=== PATIENT | male | born 1940 | race Caucasian/White ===

== ENCOUNTER 2016-06-22 10:10 | Emergency (ER) | payer OTHER ==
[~2016-06-22] VITALS: Ht 170.2 cm; Wt 88.5 kg
--- NOTE | ~2016-06-22 | EKG ---
[place] [address] [place] [address] ELECTROCARDIOGRAM REPORT Name: COLLIN GRACE JR Room #: [facility]#: [id number] Admission: Attend Phys: Discharge: Date of : 44 Report #: [id number] THIS REPORT FOR: //name// [facility] ED Test Date: 2016-06-22 Test Time: 10:16:24 Pat Name: COLLIN GRACE Department: Room: Gender: Manager Of Selection And Assessment: Too DILLARD RN : 1940 Requested By: Sosa Rosario Order Number: [id number] MD: David Patel Measurements Intervals [place] Rate: 66 P: 23 MA: 233 QRS: 8 QRSD: 105 T: 27 QT: 410 QTc: 430 Interpretive Statements Sinus rhythm Prolonged MA interval Abnormal R-wave progression, early transition ST elevation, consider anterior injury No previous ECG available for comparison Electronically Signed On 06-22-2016 10:47:49 PHARMACIST by David Patel [email or web address] <ELECTRONICALLY SIGNED> By: David Patel MD 06/22/16 1047 1016 1016 David Patel MD /EPI
--- NOTE | ~2016-06-22 | EKG ---
[address] [address] ELECTROCARDIOGRAM REPORT Name: COLLIN GRACE JR [id number] Admission: 06/22/16 Attend Phys: Discharge: 06/22/16 Date of : 44 Report #: [id number] THIS REPORT FOR: //name// [facility] ED Test Date: 2016-06-22 Test Time: 12:26:12 Pat Name: COLLIN GRACE Department: Room: Gender: M Lion Tamer: MZOOK : 1940 Requested By: Sosa Rosario Order Number: [id number] MD: Chris Gutierrez Measurements Intervals [place] Rate: 53 P: 0 [place]: 246 QRS: -1 QRSD: 103 T: 26 QT: 417 QTc: 392 Interpretive Statements Sinus rhythm Electronically Signed On 06-22-2016 14:21:49 RUNSTITCHING MACHINE OPERATOR by Chris Gutierrez [email or web address] <ELECTRONICALLY SIGNED> By: Chris Gutierrez MD 06/22/16 1421 1226 1226 Chris Gutierrez MD /EPI
[~2016-06-22 10:10] MED LIST: ACTOS 45 MG45 M1 PO; ASPIRIN EC81 M1 PO; B-COMPLEX-VITA1 EACH PO; FISH OIL 1,001000 M1 PO; GLUCOPHAGE500 MG PO; MULTIVITAMINS PO
[2016-06-22 10:45] LABS: ABSOLUTE NEUTROPHILS 3.1 thou/uL (1.4-8.2); BASOPHILS 0.7 % (0.0-2.0); EOSINOPHILS 2.8 % (0.0-3.0); HEMATOCRIT 40.6 % (42.0-52.0); HEMOGLOBIN 13.6 gm/dL (14.0-18.0); LYMPHOCYTES 23.6 % (24.0-44.0); MCH 30.8 pg (26.0-34.0); MCHC 33.6 % (28.0-37.0); MCV 91.7 fL (80.0-100.0); MONOCYTES 6.4 % (1.0-8.0); PLATELET COUNT 186 thou/uL (150-400); POLYS 66.5 % (36.0-66.0); RBC 4.42 mil/uL (4.50-6.00); WBC 4.6 thou/uL (4.0-11.0)
[2016-06-22 10:48] LABS: MANUAL DIFF NO
[2016-06-22 10:54] LABS: ANION GAP 7 mmol/L (7-16); BUN 20 mg/dL (7-18); CHLORIDE 104 mmol/L (98-107); CO2 29 mmol/L (21-32); GLUCOSE 184 mg/dL (70-99); POTASSIUM 4.4 mmol/L (3.5-5.1); SODIUM 140 mmol/L (136-145)
[2016-06-22 11:03] LABS: TROPONIN-I < 0.04 ng/mL (<0.04-0.07)
== END 2016-06-22 13:18 | disposition home or self-care (01) ==
LOC: ER 10:10
PROVIDERS: Emergency Medicine
DX: R07.89 Other chest pain (principal); E11.9 Type 2 diabetes mellitus without complications

== ENCOUNTER 2016-06-22 18:17 | Inpatient (IN) | payer OTHER ==
[~2016-06-22] VITALS: Ht 170.2 cm; Wt 89.8 kg
--- NOTE | ~2016-06-22 | EKG ---
[address] [place] [address] ELECTROCARDIOGRAM REPORT Name: COLLIN GRACE JR Room #: 202-P ADM IN M.R.#: [id number] Admission: 06/22/16 Attend Phys: David Patel MD Discharge: Date of : 44 Report #: [id number] THIS REPORT FOR: //name// [facility] ED Test Date: 2016-06-22 Test Time: 18:22:57 Pat Name: COLLIN GRACE Department: Room: 202 Gender: M Field Marketing Specialist: Too DILLARD RN : 1940 Requested By: Promise Daniels Order Number: [id number] MD: David Patel Measurements Intervals [place] Rate: 60 P: 7 CT: 237 QRS: -7 QRSD: 106 T: 35 QT: 420 QTc: 420 Interpretive Statements Sinus rhythm Prolonged CT interval ST elevation, consider anterior injury Compared to ECG 06/22/2016 12:26:12 Myocardial infarct finding now present Electronically Signed On 06-23-2016 16:41:46 NANOTECHNOLOGY TECHNICIAN by David Patel [email or web address] <ELECTRONICALLY SIGNED> By: David Patel MD 06/23/16 1641 21 21 David Patel MD /UZIEL
--- NOTE | ~2016-06-22 | EKG ---
[address] [address] ELECTROCARDIOGRAM REPORT Name: GRACECOLLIN FIGUEROA JR Room #: 202-P ADM IN M.R.#: [id number] Admission: 06/22/16 Attend Phys: David Patel MD Discharge: Date of : 44 Report #: [id number] THIS REPORT FOR: //name// [facility] Test Date: 2016-06-23 Test Time: 06:50:04 Pat Name: COLLIN GRACE Department: Room: 202 P Gender: M Four Horse Hitch Driver: john : 1940 Requested By: David Patel Order Number: [id number] MD: David Patel Measurements Intervals [place] Rate: 58 P: -55 [place]: 249 QRS: -7 QRSD: 104 T: 63 QT: 404 QTc: 397 Interpretive Statements Sinus rhythm Prolonged [place] interval Abnrm T, probable ischemia, anterolateral lds Electronically Signed On 06-23-2016 16:43:25 CHIEF DIETITIAN by David Patel [email or web address] <ELECTRONICALLY SIGNED> By: David Patel MD 06/23/16 1643 0650 0650 David Patel MD /UZIEL
--- NOTE | ~2016-06-22 | CATHLAB ---
[facility] [address] [email or web address] [address] INVASIVE PROCEDURE REPORT Name: COLLIN GRACE JR Room #: 202-P [facility] IN .R.#: [id number] Admission: 06/22/16 Attend Phys: David Patel MD Discharge: Date of : 44 Date of Service: 06/22/161954 Report #: [id number] THIS REPORT FOR: //name// CC: Chuck Patel DATE OF SERVICE: 06/22/2016 INDICATIONS: Acute anterior wall NE. Full risks, benefits, and alternatives of cardiac catheterization were explained to the patient. All questions were answered. Informed consent was obtained. The right groin area was prepped and draped in a sterile manner. Lidocaine was given subcutaneously. A 6-Slovak sheath was inserted into the right femoral artery via modified Seldinger technique. CORONARY ANATOMY: 1. The left main artery is a large caliber vessel, with no flow-limiting lesions. 2. The proximal LAD gives off a first diagonal artery. The first diagonal artery has mild disease in the proximal segment, 30%. 3. Within the mid LAD, there is a severe, 99% stenosis with MAYELIN 2 blood flow down the apical LAD. 4. The left circumflex artery gives off 2 obtuse marginal arteries. The first OM is a small caliber vessel. 5. The second obtuse marginal artery is a moderate-sized caliber vessel with mild disease in the proximal segment, 30%. 6. The RCA is a dominant vessel, with ectatic areas in the proximal segment. 7. There is a mild stenosis in the proximal RCA, 30%. There is another mild stenosis within the mid/distal segment of the RCA, 30%. The PDA is a moderate size caliber vessel, with no flow-limiting lesions. 8. A left ventriculogram was performed at the end of the procedure, revealing a dilated left ventricle with an ejection fraction of 35%-40%. There is hypokinesis of the mid to apical LAD and distal inferior segment. The LVEDP is approximately 28 mmHg. There is no gradient across the outflow tract. ANGIOPLASTY REPORT: A 6-Slovak guide was used. The patient was given Angiomax. I was able to place a Luge wire down the LAD past the obstruction. The mid segment stenosis was predilated with a 2.5 mm E4 balloon. There was a long area of stenosis and that I elected to use a 2.75 x 22 mm Resolute (the drug-eluting stent), inflated up to 14 atmospheres. This stent was postdilated with a 3.0 mm noncompliant balloon, NC Euphora inflated up to 18 atmospheres. Final injections revealed MAYELIN 3 blood flow down the LAD with a 0% residual stenosis at the lesion site. The sheath will be sutured and pulled manually. A closure device was not used [address] [address] INVASIVE PROCEDURE REPORT Name: COLLIN GRACE JR Room #: 202-P [facility] IN ..#: [id number] Admission: 06/22/16 Attend Phys: David Patel MD Discharge: Date of : 44 Date of Service: 06/22/161954 Report #: [id number] secondary to tortuosity in the right iliac artery. IMPRESSION: 1. Successful insertion of a drug-eluting stent into the subtotal occlusion within the mid LAD. 2. Mild disease in the first diagonal artery, RCA, and second obtuse marginal artery. 3. Ectatic areas in the RCA. 4. Moderate segmental LV dysfunction. 5. Recommend dual antiplatelet therapy. <ELECTRONICALLY SIGNED> By: David Patel MD 06/23/16 1219 1955 0843 David Patel MD /nt
--- NOTE | ~2016-06-22 | H ---
[facility] [place] [address] HISTORY AND PHYSICAL Name: COLLIN GRACE JR Room #: 202-P ADM IN M.R.#: [id number] Admission: 06/22/16 Attend Phys: David Patel MD Discharge: Date of : 44 Report #: [id number] THIS REPORT FOR: //name// CC: Chuck Patel INDICATION: Chest pain. HISTORY OF PRESENT ILLNESS: This is a 75-year-old gentleman with a past medical history of diabetes mellitus, presenting with recurrent chest pains. For the past few days, he has been experiencing a discomfort in his left lower chest area, radiating up into the shoulder and down the left arm. It occurs at rest, not related to physical exertion. There were no alleviating or aggravating factors. He presented to the ER for an initial evaluation earlier today. The initial evaluation was unremarkable and he was sent home. Shortly thereafter, he had recurrent episodes of chest pains and presents back to the ER for an evaluation. The EKG now shows ST elevation in leads V2 and V3, will need to rule out an acute coronary syndrome. He offers no complaints of fever, chills or congestion. PAST MEDICAL HISTORY: Diabetes mellitus. Negative for hypertension, negative for hypercholesterolemia. ALLERGIES: None. MEDICATIONS: Metformin twice a day. SOCIAL HISTORY: Denies tobacco use. FAMILY HISTORY: Negative for premature CAD. REVIEW OF SYSTEMS: A full 10-point review of systems performed. Only the pertinent positives and negatives are described in the HPI. PHYSICAL EXAMINATION: VITAL SIGNS: Blood pressure initially was 160/80, heart rate is 60 beats per minute. GENERAL APPEARANCE: A well-developed, well-nourished male in no acute respiratory distress. HEAD AND EYES: Normocephalic. Sclerae anicteric. ENT: Oral mucosa moist. NECK: Supple. LUNGS: Clear to auscultation. CARDIAC: Regular rate and rhythm, S1, S2 positive. ABDOMEN: Soft. EXTREMITIES: No major joint deformities. NEUROLOGIC: Alert and oriented x 3. [facility] [address] [place] [address] HISTORY AND PHYSICAL Name: COLLIN GRACE Room #: 202-[facility] IN .R.#: [id number] Admission: 06/22/16 Attend Phys: David Patel MD Discharge: Date of : 44 Report #: [id number] LABORATORY VALUES: ECG reveals sinus rhythm, ST elevation in V2, V3, rule out infarcts. ASSESSMENT: 1. Acute coronary syndrome/rule out anterior infarct. Full risks, benefits and alternatives of cardiac catheterization was explained to the patient. We will proceed with a coronary angiogram. 2. Diabetes mellitus. 3. Hypercholesterolemia, will need a fasting lipid profile. <ELECTRONICALLY SIGNED> By: David Patel MD 06/23/16 1220 1908 43 David Patel MD /nt
[2016-06-22 18:18] VITALS: BP 149/75
[2016-06-22 18:45] LABS: ABSOLUTE NEUTROPHILS 3.1 thou/uL (1.4-8.2); BASOPHILS 0.9 % (0.0-2.0); EOSINOPHILS 2.7 % (0.0-3.0); HEMOGLOBIN 13.5 gm/dL (14.0-18.0); LYMPHOCYTES 27.5 % (24.0-44.0); MCH 31.2 pg (26.0-34.0); MCHC 33.7 % (28.0-37.0); MCV 92.6 fL (80.0-100.0); MONOCYTES 7.5 % (1.0-8.0); PLATELET COUNT 175 thou/uL (150-400); POLYS 61.4 % (36.0-66.0); RBC 4.32 mil/uL (4.50-6.00); RDW 14.3 % (10.5-14.5); WBC 5.1 thou/uL (4.0-11.0)
[2016-06-22 18:46] LABS: MANUAL DIFF NO
[2016-06-22 18:58] LABS: APTT 26.8 Seconds (24.5-32.8); PROTIME 10.5 Seconds (9.3-11.4)
[2016-06-22 18:59] VITALS: BP 125/66
[2016-06-22 19:19] LABS: CALCIUM 9.5 mg/dL (8.5-10.1); CREATININE 0.9 mg/dL (0.6-1.3); POTASSIUM 4.7 mmol/L (3.5-5.1)
[2016-06-22 19:32] LABS: ALBUMIN 3.8 g/dL (3.4-5.0); TOTAL BILIRUBIN 0.3 mg/dL (<0.1-1.0); TOTAL PROTEIN 7.1 g/dL (6.4-8.2); TROPONIN-I 0.12 ng/mL (<0.04-0.07)
[2016-06-22 20:25] VITALS: BP 135/74
[2016-06-22 20:30] VITALS: BP 135/74
[2016-06-22 22:40] VITALS: BP 116/77
[2016-06-22 23:00] VITALS: BP 125/76
[2016-06-23] VITALS (9 sets, daily range): BP systolic 110–140; BP diastolic 66–81
[2016-06-23 04:32] LABS: HEMATOCRIT 35.2 % (42.0-52.0); HEMOGLOBIN 11.8 gm/dL (14.0-18.0); MCH 31.1 pg (26.0-34.0); MCHC 33.4 % (28.0-37.0); RBC 3.79 mil/uL (4.50-6.00); RDW 13.8 % (10.5-14.5); WBC 5.5 thou/uL (4.0-11.0)
[2016-06-23 04:57] LABS: ANION GAP 8 mmol/L (7-16); BUN 14 mg/dL (7-18); CALCIUM 8.9 mg/dL (8.5-10.1); CHLORIDE 105 mmol/L (98-107); CHOLESTEROL 119 mg/dL (<200); CO2 27 mmol/L (21-32); CREATININE 0.8 mg/dL (0.6-1.3); GLUCOSE 182 mg/dL (70-99); HDL CHOLESTEROL 36 mg/dL (>40); LDL CHOLESTEROL 64 mg/dL (<100); SODIUM 140 mmol/L (136-145); TC:HDL 3.3 Ratio (Not establshd); TRIGLYCERIDE 95 mg/dL (<150); VLDL 19 mg/dL (<40)
[2016-06-23 04:59] LABS: SERUM ASSESSMENT Clear
[2016-06-24 04:36] LABS: CALCIUM 9.6 mg/dL (8.5-10.1); CREATININE 0.9 mg/dL (0.6-1.3); POTASSIUM 4.6 mmol/L (3.5-5.1)
[2016-06-24 05:10] VITALS: BP 129/83
[2016-06-24 07:10] VITALS: BP 115/74
[2016-06-24 11:10] VITALS: BP 101/60
[2016-06-24 19:26] VITALS: BP 104/65
[2016-06-25 04:45] VITALS: BP 124/74
[2016-06-25 07:54] VITALS: BP 94/58
[2016-06-25] MEDS ORDERED: CARVEDILOL3.125 MG PO (08:01)
[2016-06-25] MEDS ORDERED: EFFIENT10 MG PO (08:01)
[2016-06-25] MEDS ORDERED: COZAAR 50 MG TA50 M1 PO (08:01)
[2016-06-25] MEDS ORDERED: ASPIRIN325 PO (08:01)
[2016-06-25] MEDS ORDERED: ATORVASTATIN CA40 MG PO (08:01)
[2016-06-25 11:12] VITALS: BP 94/58
[2016-06-25 12:18] VITALS: BP 94/58
[2016-06-25 12:20] VITALS: BP 94/58
== END 2016-06-25 13:28 | disposition home or self-care (01) | DRG 247 ==
LOC: ER 18:17 → TBA 19:01 → ER 19:01 → 2N 19:11 → TBA 19:11 → 2N 21:42
PROVIDERS: Emergency Medicine; Internal Medicine Cardiovascular Disease
PROC: 027034Z Dilation of Coronary Artery, One Artery with Drug-eluting Intraluminal Device, Percutaneous Approach (ICD-10-PCS; principal; 2016-06-22)
PROC: 4A023N7 Measurement of Cardiac Sampling and Pressure, Left Heart, Percutaneous Approach (ICD-10-PCS; 2016-06-22)
PROC: B2111ZZ Fluoroscopy of Multiple Coronary Arteries using Low Osmolar Contrast (ICD-10-PCS; 2016-06-22)
PROC: B2151ZZ Fluoroscopy of Left Heart using Low Osmolar Contrast (ICD-10-PCS; 2016-06-22)
DX: I21.09 ST elevation (STEMI) myocardial infarction involving other coronary artery of anterior wall (principal); I42.9 Cardiomyopathy, unspecified; I24.9 Acute ischemic heart disease, unspecified; E11.9 Type 2 diabetes mellitus without complications; E78.00 Pure hypercholesterolemia, unspecified; I25.10 Atherosclerotic heart disease of native coronary artery without angina pectoris; Z98.890 Other specified postprocedural states; Z79.82 Long term (current) use of aspirin
CPT/HCPCS: 10081

== ENCOUNTER → 2016-12-06 | Outpatient (CLI) | payer OTHER ==
[~2016-12-06] MED LIST changes: +ASPIRIN325 PO; +ATORVASTATIN CA40 MG PO; +CARVEDILOL3.125 MG PO; +COZAAR 50 MG TA50 M1 PO; +EFFIENT10 MG PO
== END ==
LOC: NUC 08:28
DX: I25.10 Atherosclerotic heart disease of native coronary artery without angina pectoris (principal); I10 Essential (primary) hypertension; E11.9 Type 2 diabetes mellitus without complications; E78.5 Hyperlipidemia, unspecified

== ENCOUNTER → 2017-11-18 | Outpatient (CLI) | payer OTHER ==
--- NOTE | ~2017-11-18 | 2DMMODE ---
[facility] [place] [address] 2 D/M-MODE ECHOCARDIOGRAM Name: COLLIN GRACE JR Room #: REG [facility]#: [id number] Admission: 11/18/17 Attend Phys: David Patel MD Discharge: Date of : 44 Date of Service: 11/18/17 1026 Report #: [id number] THIS REPORT FOR: //name// APPROVED REPORT Study performed: 11/18/2017 09:11:27 EXAM: Comprehensive 2D, Doppler, and color-flow Echocardiogram Patient Location: Out-Patient Status: routine BSA: 1.98 HR: 51 bpm BP: 132/72 mmHg Rhythm: NSR Other Information Study Quality: Adequate Indications CAD. Hx: STEMI, stent, HTN, HLP, DM 2D Dimensions RVDd: 38.47 mm LVEF(%): 44.76 (>50%) IVSd: 11.38 (7-11mm) LVOT Diam: 21.94 (18-24mm) LVDd: 53.02 mm PWd: 7.85 (7-11mm) Ascending Ao: 40.37 (22-36mm) LVDs: 41.14 (25-40mm) Aortic Root: 49.50 mm Albrecht's LVEF: 44.76 % Volumes Left Atrial Volume (Systole) Single Plane 4CH: 32.68 mL Single Plane 2CH: 43.14 mL LA ESV Index: 20.00 mL/m2 Aortic Valve AoV Peak Nando.: 1.18 m/s AO Peak Gr.: 5.52 mmHg LVOT Max P.97 mmHg LVOT Max V: 0.86 m/s ALVARO Vmax: 2.77 cm2 Mitral Valve E/A Ratio: 0.9 MV Decel. Time: 215.85 ms [facility] [place] [address] 2 D/M-MODE ECHOCARDIOGRAM Name: COLLIN GRACE Room #: REG [facility].#: [id number] Admission: 11/18/17 Attend Phys: David Patel MD Discharge: Date of : 44 Date of Service: 11/18/17 1026 Report #: [id number] MV E Max Nando.: 0.57 m/s MV A Nando.: 0.63 m/s MV PHT: 62.60 ms IVRT: 78.43 ms Pulmonary Valve PV Peak Nando.: 0.74 m/s PV Peak Gr.: 2.17 mmHg Pulmonary Vein P Vein S: 0.35 m/s P Vein A: 0.27 m/s P Vein D: 0.45 m/s P Vein A Dur.: 96.9 msec P Vein S/D Ratio: 0.78 Tricuspid Valve TR Peak Nando.: 2.07 m/s TR Peak Gr.: 17.12 mmHg Left Ventricle The left ventricle is normal size. There is normal left ventricular wall thickness. Left ventricular systolic function is mildly decreased. LVEF is 45-50%. Mild diastolic dysfunction is present (impaired relaxation pattern). Right Ventricle The right ventricle is normal size. The right ventricular systolic function is normal. Atria The left atrium size is normal. The right atrium size is normal. Aortic Valve The aortic valve is normal in structure. Mild aortic regurgitation. There is no aortic valvular stenosis. Mitral Valve The mitral valve is normal in structure. There is no mitral valve regurgitation noted. No evidence of mitral valve stenosis. Tricuspid Valve The tricuspid valve is normal in structure. Trace tricuspid regurgitation. Estimated PAP is 17mmHg plus the right atrial pressure. Pulmonic Valve The pulmonary valve is normal in structure. Trace pulmonic [facility] [address] [place] [address] 2 D/M-MODE ECHOCARDIOGRAM Name: COLLIN GRACE JR Room #: REG [facility]#: [id number] Admission: 11/18/17 Attend Phys: David Patel MD Discharge: Date of : 44 Date of Service: 11/18/17 1026 Report #: [id number] regurgitation. Great Vessels Aortic root is moderately dilated at 4.9. Ascending aorta is mildly dilated where visualized at 4.0cm. IVC is not well visualized. Pericardium There is no pericardial effusion. <Conclusion> The left ventricle is normal size. Left ventricular systolic function is mildly decreased. Mild diastolic dysfunction is present (impaired relaxation pattern). The right ventricle is normal size. The left atrium size is normal. Mild aortic regurgitation. There is no mitral valve regurgitation noted. Trace tricuspid regurgitation. Estimated PAP is 17mmHg plus the right atrial pressure. Ascending aorta is mildly dilated where visualized at 4.0cm. <ELECTRONICALLY SIGNED> By: David Patel MD 11/18/17 1026 1026 1026 David Patel MD /INF
== END ==
LOC: CV 06:37
DX: I42.9 Cardiomyopathy, unspecified (principal); I10 Essential (primary) hypertension; E78.5 Hyperlipidemia, unspecified; E11.9 Type 2 diabetes mellitus without complications; I35.1 Nonrheumatic aortic (valve) insufficiency

== ENCOUNTER → 2019-02-05 | Outpatient (CLI) | payer OTHER ==
[~2019-02-05] MED LIST changes: +METFORMIN HCL500 MG PO
== END ==
LOC: NUC 12-18 06:11
DX: I25.812 Atherosclerosis of bypass graft of coronary artery of transplanted heart without angina pectoris (principal); I25.5 Ischemic cardiomyopathy; E11.9 Type 2 diabetes mellitus without complications; Z79.899 Other long term (current) drug therapy

== ENCOUNTER → 2020-02-09 | Outpatient (CLI) | payer OTHER | LOC: SJCVCIMAG 12:37 | PROVIDERS: ATTEND Internal Medicine Cardiovascular Disease | DX: I08.0 Rheumatic disorders of both mitral and aortic valves (principal); I11.9 Hypertensive heart disease without heart failure; R00.1 Bradycardia, unspecified; E11.9 Type 2 diabetes mellitus without complications; I25.812 Atherosclerosis of bypass graft of coronary artery of transplanted heart without angina pectoris; I42.9 Cardiomyopathy, unspecified; E78.00 Pure hypercholesterolemia, unspecified; Z79.899 Other long term (current) drug therapy ==

== ENCOUNTER → 2020-08-11 | Outpatient (CLI) | payer OTHER | LOC: SJCVCIMAG 08:16 | PROVIDERS: ATTEND Internal Medicine Cardiovascular Disease | DX: I44.0 Atrioventricular block, first degree (principal); I42.9 Cardiomyopathy, unspecified; I25.812 Atherosclerosis of bypass graft of coronary artery of transplanted heart without angina pectoris; I10 Essential (primary) hypertension; E78.00 Pure hypercholesterolemia, unspecified; E11.9 Type 2 diabetes mellitus without complications; I25.2 Old myocardial infarction; Z98.61 Coronary angioplasty status; Z79.82 Long term (current) use of aspirin; Z79.899 Other long term (current) drug therapy ==

== ENCOUNTER → 2021-02-16 | Outpatient (CLI) | payer OTHER | LOC: SJCVC 09:56 | PROVIDERS: ATTEND Internal Medicine Cardiovascular Disease | DX: R94.31 Abnormal electrocardiogram [ECG] [EKG] (principal); R00.0 Tachycardia, unspecified; I44.1 Atrioventricular block, second degree; R00.1 Bradycardia, unspecified; I10 Essential (primary) hypertension; I25.812 Atherosclerosis of bypass graft of coronary artery of transplanted heart without angina pectoris; E11.40 Type 2 diabetes mellitus with diabetic neuropathy, unspecified; E78.00 Pure hypercholesterolemia, unspecified; I42.9 Cardiomyopathy, unspecified; R42 Dizziness and giddiness; Z79.82 Long term (current) use of aspirin; Z79.84 Long term (current) use of oral hypoglycemic drugs; Z79.899 Other long term (current) drug therapy ==

== ENCOUNTER → 2021-03-24 | Outpatient (CLI) | payer OTHER | LOC: SJCVC 10:34 | PROVIDERS: ATTEND Internal Medicine Cardiovascular Disease | DX: R94.31 Abnormal electrocardiogram [ECG] [EKG] (principal); I44.0 Atrioventricular block, first degree; I11.9 Hypertensive heart disease without heart failure; I25.10 Atherosclerotic heart disease of native coronary artery without angina pectoris; R42 Dizziness and giddiness; E78.00 Pure hypercholesterolemia, unspecified; I42.9 Cardiomyopathy, unspecified; R00.1 Bradycardia, unspecified; E11.40 Type 2 diabetes mellitus with diabetic neuropathy, unspecified; Z79.82 Long term (current) use of aspirin; Z79.84 Long term (current) use of oral hypoglycemic drugs; Z79.899 Other long term (current) drug therapy ==